=== PATIENT | male | born 1985 | race African-American/Black ===

== ENCOUNTER 2016-10-20 21:08 | Emergency (ER) | payer OTHER ==
[~2016-10-20] VITALS: Ht 170.2 cm; Wt 56.7 kg
--- NOTE | ~2016-10-20 | EKG ---
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 : 1985 Requested By: Clare Bhakta Order Number: [id number] MD: Adilson Monique Measurements Intervals [employer] Rate: 69 P: 68 NH: 126 QRS: 70 QRSD: 93 T: 75 QT: 375 QTc: 402 Interpretive Statements Sinus rhythm RSR' in V1 or V2, probably normal variant Baseline wander in lead(s) V1 No previous ECG available for comparison Electronically Signed On 10-21-2016 7:58:37 CDT by Adilson Monique [email or web address] <ELECTRONICALLY SIGNED> By: Adilson Monique MD, [facility] 10/21/16 [id number] Adilson Monique MD, FACC /EPI
[~2016-10-20 21:08] MED LIST: CLARITIN10 MG PO; PREDNISONE 20 M20 MG PO
[2016-10-20 22:35] VITALS: BP 130/89
[2016-10-20] MEDS ORDERED: FLONASE 0.05%50 MCG NASAL (22:38)
[2016-10-20] MEDS ORDERED: CLARINEX-D 121 EACH PO (22:38)
== END 2016-10-20 22:50 | disposition home or self-care (01) ==
LOC: ER 21:08
DX: J30.9 Allergic rhinitis, unspecified (principal); J34.89 Other specified disorders of nose and nasal sinuses; F10.99 Alcohol use, unspecified with unspecified alcohol-induced disorder; Z71.6 Tobacco abuse counseling; Z87.891 Personal history of nicotine dependence